=== PATIENT | male | born 1955 | race Caucasian/White ===

== ENCOUNTER 2018-07-30 06:59 | Day surgery (SDC) | payer OTHER ==
[~2018-07-30] VITALS: Ht 177.8 cm; Wt 100.8 kg
[2018-07-30 07:15] VITALS: BP 135/73
[2018-07-30] MEDS ORDERED: LIDOcaine 1% 30ml preserv. free vial SQ ONE (07:20)
[2018-07-30] MEDS ORDERED: normal saline 1000ml 1,000 ML IV PRN (07:25)
[2018-07-30] MEDS ORDERED: albumin 25% 50mL bottle X 2 BOTTLES IV PRN (07:25)
[2018-07-30] MEDS ORDERED: CIPR-259 PO (07:45)
[2018-07-30] MEDS ORDERED: MULT-1180 PO (07:45)
[2018-07-30] MEDS ORDERED: OMEP-271 PO (07:45)
[2018-07-30] MEDS ORDERED: NADO40TA PO (07:45)
[2018-07-30] MEDS ORDERED: POLY17PO10 PO (07:45)
[2018-07-30] MEDS ORDERED: FLO0.4C PO (07:45)
[2018-07-30] MEDS ORDERED: LACT10SO6 PO (07:45)
[2018-07-30 08:24] LABS: PROTHROMBIN TIME 16.5 SECONDS (9.0-12.0)
[2018-07-30 08:25] LABS: INR 1.7 INR
[2018-07-30 08:40] VITALS: BP 133/70
[2018-07-30 08:45] VITALS: BP 136/72
[2018-07-30 08:58] LABS: HEMATOCRIT 38.1 % (42.0-52.0); HEMOGLOBIN 13.4 g/dl (14.0-17.9); MEAN CORPUSCULAR HEMOGLOBIN 36.5 PG (27.0-31.0); MEAN CORPUSCULAR HGB CONC 35.2 % (33.0-36.5); MEAN CORPUSCULAR VOLUME 103.8 FL (78-98); RED BLOOD COUNT 3.67 X10'6 (4.70-6.10); RED CELL DISTRIBUTION WIDTH 16.4 % (11.5-14.5); WHITE BLOOD COUNT 4.3 X10'3 (4.5-11.0)
[2018-07-30 08:59] LABS: BASOPHILS % (AUTO) 0 % (0-1); EOSINOPHILS # (AUTO) 0.2 X10'3 (0-0.9); EOSINOPHILS % (AUTO) 3.8 % (0-6); LYMPHOCYTES # (AUTO) 0.6 X10'3 (1.1-4.8); LYMPHOCYTES % (AUTO) 14.6 % (21-51); MEAN PLATELET VOLUME 11.6 FL (7.4-10.4); MONOCYTES # (AUTO) 0.5 X10'3 (0-0.9); MONOCYTES % (AUTO) 11.3 % (2-12); NEUTROPHILS # (AUTO) 3.1 X10'3 (1.8-7.7); NEUTROPHILS % (AUTO) 70.3 % (42-75); PLATELET COUNT 108 X10'3 (140-440)
[2018-07-30 09:00] VITALS: BP 135/67
[2018-07-30 09:00] LABS: ANISOCYTOSIS 1+; BURR CELLS FEW; GIANT PLATELET FEW; PLATELET ESTIMATE DECREASED; SCHISTOCYTES FEW
[2018-07-30 09:15] VITALS: BP 132/70
[2018-07-30 09:44] VITALS: BP 138/69
[2018-07-30 10:33] LABS: GLUCOSE,BODY FLUID 88 MG/DL; LDH,BODY FLUID 71 U/L
[2018-07-30 10:46] LABS: LYMPHOCYTES,BODY FLUID 25 %; MONOCYTES,BODY FLUID 64 %; NEUTROPHILS,BODY FLUID 11 %
[2018-07-30 10:48] LABS: BFAPPEAR HAZY
[2018-07-30 10:49] LABS: BF MESOTHELIAL CELLS FEW; BF RBC COUNT 625 /CU MM; BF WBC COUNT 285 /CU MM (0-1000); BFCOLOR YELLOW; BFVOLUME 47 ML; TOTAL PROTEIN,BODY FLUID < 2.0 G/DL
== END 2018-07-30 09:45 | disposition home or self-care (01) ==
LOC: SSTAY O 06:59
PROVIDERS: ATTEND Radiology Diagnostic Radiology
DX: R18.8 Other ascites (principal); K74.60 Unspecified cirrhosis of liver; I10 Essential (primary) hypertension; F17.210 Nicotine dependence, cigarettes, uncomplicated; Z92.3 Personal history of irradiation; Z79.1 Long term (current) use of non-steroidal anti-inflammatories (NSAID); Z79.2 Long term (current) use of antibiotics; Z85.05 Personal history of malignant neoplasm of liver; Z86.19 Personal history of other infectious and parasitic diseases; Z90.89 Acquired absence of other organs; Z98.890 Other specified postprocedural states; Z79.899 Other long term (current) drug therapy
CPT/HCPCS: 36415; 49083; 82945; 83615; 84157; 85025; 85610; 87070; 89051; J3490; J7030

== ENCOUNTER 2018-08-15 09:33 | Day surgery (SDC) | payer OTHER ==
[~2018-08-15] VITALS: Ht 177.8 cm; Wt 99.7 kg
[~2018-08-15 09:33] MED LIST: CIPR-259 PO; FLO0.4C PO; LACT10SO6 PO; LIDOcaine 1% 30ml preserv. free vial SQ ONE; MULT-1180 PO; NADO40TA PO; OMEP-271 PO; POLY17PO10 PO
[2018-08-15 09:48] VITALS: BP 133/72
[2018-08-15] MEDS ORDERED: SENN-93 PO (09:58)
[2018-08-15] MEDS ORDERED: RIFA550T PO (09:58)
[2018-08-15] MEDS ORDERED: SPIR25TA5 PO (09:58)
[2018-08-15] MEDS ORDERED: normal saline 1000ml 1,000 ML IV PRN (10:05)
[2018-08-15] MEDS ORDERED: albumin 25% 50mL bottle X 2 BOTTLES IV ONE (10:05)
[2018-08-15 10:26] VITALS: BP 133/72
[2018-08-15 10:41] VITALS: BP 129/65
[2018-08-15 11:00] VITALS: BP 128/67
== END 2018-08-15 11:00 | disposition home or self-care (01) ==
LOC: SSTAY O 09:33
PROVIDERS: ATTEND Radiology Diagnostic Radiology
DX: R18.8 Other ascites (principal); Z79.899 Other long term (current) drug therapy
CPT/HCPCS: 49083; C1729; J3490; J7030

== ENCOUNTER 2018-08-22 08:51 | Day surgery (SDC) | payer OTHER ==
[~2018-08-22] VITALS: Ht 177.8 cm; Wt 97.0 kg
[~2018-08-22 08:51] MED LIST changes: -CIPR-259 PO; -LIDOcaine 1% 30ml preserv. free vial SQ ONE; +RIFA550T PO; +SENN-93 PO; +SPIR25TA5 PO
[2018-08-22] MEDS ORDERED: LIDOcaine 1% 30ml preserv. free vial SQ STA (09:10)
[2018-08-22] MEDS ORDERED: albumin 25% 50mL bottle X 2 BOTTLES IV ONE (09:15)
[2018-08-22] MEDS ORDERED: normal saline 1000ml 1,000 ML IV PRN (09:15)
[2018-08-22 09:30] VITALS: BP 135/64
[2018-08-22 09:40] VITALS: BP 137/72
[2018-08-22 09:45] VITALS: BP 129/60
[2018-08-22 10:00] VITALS: BP 130/62
[2018-08-22 10:15] VITALS: BP 136/69
[2018-08-22 10:30] VITALS: BP 142/70
== END 2018-08-22 10:35 | disposition home or self-care (01) ==
LOC: SSTAY O 08:51
PROVIDERS: ATTEND Radiology Diagnostic Radiology
DX: R18.8 Other ascites (principal); K74.60 Unspecified cirrhosis of liver
CPT/HCPCS: 49083; C1729; J3490; J7030

== ENCOUNTER 2018-08-29 08:10 | Day surgery (SDC) | payer OTHER ==
[~2018-08-29] VITALS: Ht 177.8 cm; Wt 94.4 kg
[~2018-08-29 08:10] MED LIST changes: +LIDOcaine 1% 30ml preserv. free vial SQ STA
[2018-08-29] MEDS ORDERED: albumin 25% 50mL bottle X 2 BOTTLES IV PRN (08:25)
[2018-08-29] MEDS ORDERED: normal saline 1000ml 1,000 ML IV PRN (08:25)
[2018-08-29] MEDS ORDERED: PER10325T PO (08:31)
[2018-08-29] MEDS ORDERED: MYCOL30CR TP (08:31)
[2018-08-29 09:00] VITALS: BP_SYST 105; BP_SYST 113; BP_DIAS 62; BP_DIAS 66
[2018-08-29 09:15] VITALS: BP 116/60
[2018-08-29 09:40] VITALS: BP 118/62
== END 2018-08-29 09:30 | disposition home or self-care (01) ==
LOC: SSTAY O 08:10
PROVIDERS: ATTEND Radiology Vascular & Interventional Radiology
DX: R18.8 Other ascites (principal); K74.60 Unspecified cirrhosis of liver
CPT/HCPCS: 49083; C1729; J3490; J7030